=== PATIENT | male | born 1985 | race Hispanic/Latino ===

== ENCOUNTER 2024-04-05 12:44 | Emergency (ER) | payer SELFPAY ==
[2024-04-05 12:52] VITALS: BP 122/70
--- NOTE | 2024-04-05 13:08 | ED.GENMED ---
History of Present Illness
<Cande Leon PA-C - Last Filed: 04/05/24 18:56>
General
Chief Complaint: Skin Surface Trauma
Source: patient
Exam Limitations: none
Time Seen by Provider: 04/05/24 12:59
Nursing documentation reviewed up to this point in time: agreed with
Travel History
Have you had any contact with someone who has COVID-19?: No
Do you have any symptoms of coronavirus? Fever > 100 degrees, chills, cough, shortness of breath, sore throat, loss of taste or smell, muscle aches, or headache?: No
History of Present Illness
History of Present Illness:
This is a 38 y/o male with no past medical history presenting emergency department today with concerns of a laceration. Patient does speak some Czech but son present with him who is translating for him right now. Patient states that he was
playing soccer today when he was kicked in the [place], and he subsequently got a laceration. It is actively bleeding. Patient denies any falls. Patient denies any head trauma. Patient denies any other injuries. Patient is not up-to-date on his
tetanus, we will plan to update today. Patient denies shortness of breath, chest pain, abdominal pain.
Review of Systems
<Cande Leon PA-C - Last Filed: 04/05/24 18:56>
Review of Systems
All Other Systems: ROS reviewed and negative except as documented in HPI and ROS
Phy Exam
<Cande Leon PA-C - Last Filed: 04/05/24 18:56>
Physical Exam
Physical Exam:
General: Patient is well appearing and in no acute distress; non-toxic
Skin: There is a 2.5 cm V shaped laceration on the left anterior maradi[place] that is actively be bleeding. Well-vascularized flap. No other lesions.
Head: Normocephalic, atraumatic
Eyes: Sclera non-icteric. EOMs intact. PERRLA.
Cardiac: Regular rate
Peripheral Vascular: No lower extremity swelling or edema, 2+ dorsalis pedis pulses bilaterally
Pulm: Normal respiratory effort
Abdomen: No abdominal tenderness
Musculoskeletal: 5/5 strength in b/l upper and lower extremities. Sensation intact in bilateral lower extremities. Full range of motion of bilateral lower extremities. No pain with passive range of motion. No bony tenderness to palpation.
Neuro: CN II-XII intact, no focal neurologic deficits.
Psychiatric: Appropriate mood and affect.
Course
<Cande Leon PA-C - Last Filed: 04/05/24 18:56>
Orders/Labs/Results
Orders:
Orders
04/05/24 13:19
Tetanus/Diphth/Acelpertussis [Adacel] 0.5 ml IM .ONCE ONE
Vital Signs
Initial and Last Documented VS:
Initial Vital Signs
Temp Pulse Resp BP Pulse Ox
99.1 F 84 16 122/70 98
04/05/24 12:52 04/05/24 12:52 04/05/24 12:52 04/05/24 12:52 04/05/24 12:52
Last Documented Vital Signs
Temp Pulse Resp BP Pulse Ox
99.1 F 84 16 122/70 98
04/05/24 12:52 04/05/24 12:52 04/05/24 12:52 04/05/24 12:52 04/05/24 12:52
<Galen Berg DO - Last Filed: 04/05/24 14:13>
Orders/Labs/Results
Orders:
Orders
04/05/24 13:19
Tetanus/Diphth/Acelpertussis [Adacel] 0.5 ml IM .ONCE ONE
Vital Signs
Initial and Last Documented VS:
Initial Vital Signs
Temp Pulse Resp BP Pulse Ox
99.1 F 84 16 122/70 98
04/05/24 12:52 04/05/24 12:52 04/05/24 12:52 04/05/24 12:52 04/05/24 12:52
Last Documented Vital Signs
Temp Pulse Resp BP Pulse Ox
99.1 F 84 16 122/70 98
04/05/24 12:52 04/05/24 12:52 04/05/24 12:52 04/05/24 12:52 04/05/24 12:52
Procedures
<Cande Leon PA-C - Last Filed: 04/05/24 18:56>
Laceration Closure
Left Anterior Leg:
Status of Wound: clean
Size of Wound in cm: 2.5
Description of Wound Edges: sharp and flap-well vascularized
Anesthesia: 1% Lidocaine with epi
Revision/Debridement: routine- no revision
Wound exploration: explored to base- no FB
Type of Closure: single layer closure
Skin Closure Material: 4-0 prolene
Number of sutures: 8
<Cande Leon PA-C - Last Filed: 04/05/24 18:56>
MDM/Problems Addressed
Differential Diagnosis Includes:
ddx include abrasion, laceration, cellulitis, contusion
MDM/Problems Addressed:
Laceration, will update tetanus, no indication for imaging at this time
Chronic conditions affecting care:
n/a
Acute Exacerbation and/or Progression of Chronic Illness:
n/a
<Cande Leon PA-C - Last Filed: 04/05/24 18:56>
*Pulse Oximetry
Patient hypoxic: no
*Critical Care Note
Total Time (30-74mins, 75-104mins- exclusive of procedures): Not Applicable
Data Reviewed
Review of Other/Old Records Reveals: Records (No previous ER documentation to review) and Discharge Summary (No discharge summaries to review)
Source: patient and records
<Cande Leon PA-C - Last Filed: 04/05/24 18:56>
Patient Management
Escalation/DeEscalation of care consider admission/obs:
This is a 38 y/o male with no past medical history presenting emergency department today with concerns of a laceration. Patient was kicked in the [place] while playing soccer. Patient denies any other injuries. Patient has no bony tenderness on
examination. Pulses and sensation intact. Wound was repaired with sutures, patient tolerated procedure well, return precautions given, patient stable for discharge.
ED Attending Note
<Cande Leon PA-C - Last Filed: 04/05/24 18:56>
-
Portions of this chart may have been created with voice recognition software.� Occasional wrong word or��sound alike� substitutions may have occurred due to the inherent limitations of voice recognition software.
<Galen Berg DO - Last Filed: 04/05/24 14:13>
ED Attending Note
Patient seen and examined by attending physician: Yes
I performed the substantive portion of visit, reviewed & personally made and approve the management plan that is documented in note by myself or CANDY.: Yes
ED Attending Note:
Seen with PA examined independently, lower extremity laceration playing soccer
Discharge Plan
Departure
Patient Disposition: Home (Routine Discharge)
Date of Disposition: 04/05/24
Time of Disposition: 14:06
Patient with high blood pressure during this ER visit?: Yes
Condition: Good
Discharge Problem:
Laceration of leg
Instructions: Wound Care (DC), Laceration Repair With Stitches (DC), BLOOD PRESSURE
Referrals:
UNKNOWN - PT DOES,NOT KNOW [Family Provider] -
Activity Restrictions/Additional Instructions:
Please report to urgent care, your primary care provider, or at the emergency department to have your stitches removed in 7 to 10 days. Please return emergency department should you experience fevers or chills, purulent drainage from the wound,
redness surrounding the wound, inability to walk, or any other concerning signs or symptoms.
Please keep the wound dry for 24 to 48 hours. After this time, you can wash the wound with mild soap and water.
Please follow-up with your primary care provider.
Interventions
Interventions:
*Nursing Disposition Last Done: 04/05/24 14:26
ED-Skin Assessment Last Done: 04/05/24 14:06
Discharge Date and Time
Discharge Date/Time: 04/05/24 14:27
Print Language: CZECH
[2024-04-05] MEDS: ADACEL 0.5 ML IM (14:03)
== END 2024-04-05 14:27 | disposition home or self-care (01) ==
LOC: EMR 12:44
PROVIDERS: EMERGENCY PHYSICIAN Emergency Medicine
DX: S81.812A Laceration without foreign body, left lower leg, initial encounter (principal); W50.1XXA Accidental kick by another person, initial encounter; Y93.66 Activity, soccer; Z23 Encounter for immunization
CPT/HCPCS: 99282; 90471; 90715